=== PATIENT | male | born 2000 | race Caucasian/White ===

== ENCOUNTER 2020-08-21 14:59 | Emergency (ER) | payer MEDICAID ==
[~2020-08-21] VITALS: Ht 172.7 cm; Wt 77.0 kg
[2020-08-21 15:06] VITALS: BP 180/119
== END 2020-08-21 18:53 | disposition left against medical advice (07) ==
LOC: ER 14:59
DX: R10.9 Unspecified abdominal pain (principal); Z53.21 Procedure and treatment not carried out due to patient leaving prior to being seen by health care provider
CPT/HCPCS: 93005

== ENCOUNTER 2020-10-01 17:22 | Emergency (ER) | payer MEDICAID ==
[~2020-10-01] VITALS: Ht 172.7 cm; Wt 78.0 kg
[2020-10-01 17:26] VITALS: BP 160/80
== END 2020-10-01 23:30 | disposition left against medical advice (07) ==
LOC: ER 17:22
DX: Z53.21 Procedure and treatment not carried out due to patient leaving prior to being seen by health care provider (principal)